=== PATIENT | female | born 1955 | race Caucasian/White ===

== ENCOUNTER → 2016-09-26 | Outpatient (REF) | payer BC | LOC: M LAB REF 16:52 | PROVIDERS: ATTEND Surgery | DX: L72.0 Epidermal cyst (principal) ==

== ENCOUNTER → 2017-01-02 | Outpatient (CLI) | payer BC ==
--- NOTE | 2017-01-02 13:07 | REP ---
Clinical: Trauma. Injury. Technique: AP, lateral, bilateral oblique and sunrise views of the left knee. Findings: Severe, advanced tricompartmental osteoarthritic degenerative changes are appreciated. No obvious acute fracture dislocation. No definite effusion. Impression: Severe tricompartmental degenerative changes. No obvious acute fracture or dislocation. Signed by Jaleel De MD 01/02/2017 12:58 P
== END ==
LOC: M WUC 12:09
PROVIDERS: ATTEND Physician Assistant
DX: M17.12 Unilateral primary osteoarthritis, left knee (principal); M25.562 Pain in left knee

== ENCOUNTER → 2017-12-22 | Outpatient (CLI) | payer BC ==
[2017-12-22 10:30] LABS: BASO # 0.1 10^3/uL (0.0-0.2); BASO % 0.8 % (0.0-1.0); EOS # 0.3 10^3/uL (0.0-0.50); HEMATOCRIT 43.8 % (36.0-47.0); HEMOGLOBIN 14.2 g/dl (12.0-15.5); IMMATURE GRANULOCYTE % 0.4 % (0-3.0); LYMPH # 2.4 10^3/uL (1.5-4.5); LYMPH % 28.8 % (24.0-44.0); MEAN CORPUSCULAR HEMOGLOBIN 28.1 pg (27.0-33.0); MEAN CORPUSCULAR HGB CONC 32.4 g/dl (32.0-36.5); MEAN CORPUSCULAR VOLUME 86.6 fl (80.0-96.0); MONO # 0.7 10^3/uL (0.0-0.8); MONO % 8.3 % (0.0-5.0); NEUTROPHILS # 4.8 10^3/uL (1.8-7.7); NEUTROPHILS % 57.7 % (36.0-66.0); PLATELET COUNT, AUTOMATED 220 10^3/uL (150-450); RED BLOOD COUNT 5.06 10^6/uL (4.00-5.40); RED CELL DISTRIBUTION WIDTH 13.3 % (11.5-14.5); WHITE BLOOD COUNT 8.3 10^3/uL (4.0-10.0)
[2017-12-22 10:56] LABS: TOTAL 25(OH) VITAMIN D 19.3 NG/ML (30.0-100.0)
[2017-12-22 11:01] LABS: ALBUMIN 3.8 GM/DL (3.2-5.2); ALBUMIN/GLOBULIN RATIO 1.09 (1.00-1.93); ALKALINE PHOSPHATASE 72 U/L (45-117); ALT/SGPT 24 U/L (12-78); ANION GAP 7 MEQ/L (8-16); AST/SGOT 17 U/L (7-37); BILIRUBIN,TOTAL 0.7 MG/DL (0.2-1.0); BLOOD UREA NITROGEN 14 MG/DL (7-18); CALCIUM LEVEL 8.9 MG/DL (8.8-10.2); CARBON DIOXIDE LEVEL 27 MEQ/L (21-32); CHLORIDE LEVEL 106 MEQ/L (98-107); CHOLESTEROL LEVEL 173 MG/DL (<200); CHOLESTEROL RISK RATIO 3.604 (<5); CREATININE FOR GFR 0.71 MG/DL (0.55-1.30); FREE T4 0.87 NG/DL (0.76-1.46); GLOMERULAR FILTRATION RATE > 60.0 (>45); GLUCOSE, FASTING 103 MG/DL (70-100); HDL CHOLESTEROL 48 MG/DL (>40); LDL CHOLESTEROL 101.2 MG/DL (<100); NON-HDL-C 125 MG/DL; SODIUM LEVEL 140 MEQ/L (136-145); TOTAL PROTEIN 7.3 GM/DL (6.4-8.2); TRIGLYCERIDES LEVEL 119 MG/DL (<150)
== END ==
LOC: M LAB 09:53
DX: F41.1 Generalized anxiety disorder (principal); I10 Essential (primary) hypertension; E55.9 Vitamin D deficiency, unspecified; Z13.0 Encounter for screening for diseases of the blood and blood-forming organs and certain disorders involving the immune mechanism
CPT/HCPCS: 84443

== ENCOUNTER → 2018-02-16 | Outpatient (CLI) | payer BC | LOC: M WHC 13:52 | DX: Z12.31 Encounter for screening mammogram for malignant neoplasm of breast (principal) | CPT/HCPCS: 77067 ==

== ENCOUNTER → 2018-09-05 | Outpatient (CLI) | payer BC, MEDICARE ==
--- NOTE | 2018-09-05 13:22 | REP ---
Clinical: Severe knee pain. Technique: AP, lateral, bilateral oblique and sunrise views of the left knee. Comparison: 01/02/2017. Findings: Severe tricompartmental osteoarthritic degenerative changes are appreciated and similar to prior examination. A large suprapatellar effusion is identified and increased from prior examination. Overlying anterior soft tissue swelling noted. While no definite acute fracture is appreciated, subtle injury cannot definitively be excluded due to the surrounding degenerative changes. Impression: Severe tricompartmental osteoarthritic degenerative changes along with swelling and suprapatellar effusion. Electronically Signed by Jaleel De MD 09/05/2018 01:14 P
== END ==
LOC: M LRY 12:50
PROVIDERS: ATTEND Physician Assistant
DX: M17.12 Unilateral primary osteoarthritis, left knee (principal); M25.462 Effusion, left knee

== ENCOUNTER → 2018-10-26 | Outpatient (CLI) | payer MEDICARE ==
--- NOTE | 2018-10-26 15:58 | REP ---
Chest two views HISTORY: Preop Comparison: 12/23/2002 The lungs are clear. The cardiac silhouette is enlarged. The pulmonary vasculature is normal in appearance. The bony structure is intact. IMPRESSION: Cardiomegaly. Electronically Signed by Jose D Reyes MD 10/26/2018 03:49 P
[2018-10-26 17:20] LABS: HEMATOCRIT 44.1 % (36.0-47.0); HEMOGLOBIN 14.2 g/dl (12.0-15.5); MEAN CORPUSCULAR HEMOGLOBIN 27.6 pg (27.0-33.0); MEAN CORPUSCULAR HGB CONC 32.2 g/dl (32.0-36.5); MEAN CORPUSCULAR VOLUME 85.6 fl (80.0-96.0); PLATELET COUNT, AUTOMATED 237 10^3/uL (150-450); RED BLOOD COUNT 5.15 10^6/uL (4.00-5.40); WHITE BLOOD COUNT 10.2 10^3/uL (4.0-10.0)
[2018-10-26 17:26] LABS: ALBUMIN 4.1 GM/DL (3.2-5.2); ALT/SGPT 22 U/L (12-78); BILIRUBIN,TOTAL 0.4 MG/DL (0.2-1.0); BLOOD UREA NITROGEN 17 MG/DL (7-18); CALCIUM LEVEL 9.7 MG/DL (8.8-10.2); CARBON DIOXIDE LEVEL 27 MEQ/L (21-32); CHLORIDE LEVEL 104 MEQ/L (98-107); CREATININE FOR GFR 0.72 MG/DL (0.55-1.30); GLOMERULAR FILTRATION RATE > 60.0 (>45); GLUCOSE, FASTING 98 MG/DL (70-100); POTASSIUM SERUM 3.8 MEQ/L (3.5-5.1); SODIUM LEVEL 138 MEQ/L (136-145); TOTAL PROTEIN 7.2 GM/DL (6.4-8.2)
[2018-10-26 17:36] LABS: INR 0.97
[2018-10-27 07:33] LABS: ERYTHROCYTE SEDIMENTATION RATE 8 mm/hr (0-30)
== END ==
LOC: M LRY 14:37
PROVIDERS: ATTEND Orthopaedic Surgery
DX: Z01.818 Encounter for other preprocedural examination (principal); I10 Essential (primary) hypertension; E78.00 Pure hypercholesterolemia, unspecified; H40.9 Unspecified glaucoma; M17.12 Unilateral primary osteoarthritis, left knee

== ENCOUNTER 2018-12-09 09:35 | Inpatient (IN) | payer MEDICARE ==
--- NOTE | 2018-12-04 01:42 | HPE ---
DATE OF PLANNED ADMISSION: 12/09/2018 ATTENDING PHYSICIAN: Dusty Bergman MD CHIEF COMPLAINT: Left knee pain. HISTORY OF PRESENT ILLNESS: Suzi is a pleasant 63-year-old female with progressively worsening left knee pain and stiffness. She has failed to improve with conservative treatment. She has elected for surgery for her continued symptoms. She has pain with weightbearing activities and her activities of daily living. X-rays of her knee are notable for advanced osteoarthritis of the left knee joint. She has consented for a left total knee arthroplasty by Dr. Dusty Bergman. Medical optimization was performed by Dr. Tyson. ALLERGIES: LATEX intolerance. CURRENT MEDICATIONS: - losartan/HCTZ 100/25 mg once a day - sertraline 100 mg once a day - timolol maleate ophthalmic gel - ranitidine 150 mg one every day at bedtime PAST MEDICAL HISTORY: Includes hypertension, anxiety. PAST SURGICAL HISTORY: Includes appendectomy and a procedure for glaucoma. 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 FAMILY HISTORY: Noncontributory. REVIEW OF SYSTEMS: This patient denies chest pain, heart palpitations, cough, wheezing, difficulty breathing, and shortness of breath. She denies abdominal pain, nausea, vomiting, diarrhea, or constipation. She denies recent upper respiratory infection or urinary tract infection symptoms. She does complain of persistent left knee pain and pain with weightbearing activities in the left knee. PHYSICAL EXAMINATION: General: She is a well-nourished, well-developed, in no acute distress, alert female patient who walks with a moderate limp favoring her left lower extremity. She is not using assistive devices. Vital signs: She is 63-3/4 inches tall, weighs 235.2 pounds with a temperature of 98.2, blood pressure 135/62, respirations of 13, pulse of 62. Neck: Supple without adenopathy or jugular venous distention. There were no carotid bruits appreciated upon auscultation. Lungs: Are clear to auscultation without rales or wheeze throughout. Heart: Regular rate and rhythm without murmurs, gallops, or rubs. Abdomen: Bowel sounds were present. Extremities: Examination of the knee revealed intact skin. She had decreased range of motion secondary to pain and stiffness. The limb was neurovascularly intact. LABORATORY DATA: Sedimentation rate was 8. CBC showed a white count of 10.2. Blood type is O negative. Protime 13.0, INR 0.97. Glucose 98, BUN 17, creatinine 0.72. Chest x-ray shows cardiomegaly. EKG showed normal sinus rhythm at 68 beats per minute. IMPRESSION: Symptomatic osteoarthritis of the left knee joint. PLAN: Consented for a left total knee arthroplasty by Dr. Dusty Bergman.
[~2018-12-09] VITALS: Ht 162.6 cm; Wt 104.3 kg
[2018-12-09] VITALS (7 sets, daily range): BP systolic 132–179; BP diastolic 70–99
[~2018-12-09 09:35] MED LIST: LOSA100T5 PO; LR 1,000 ML IV ONE; SERT-138 PO; TIMO0.5S42 OS
[2018-12-09] MEDS ORDERED: PROPOFOL 500 MG/50 ML VIAL As Ordered ONE (11:11)
[2018-12-09] MEDS ORDERED: MIDAZOLAM INJ 2 MG/2 ML VIAL (J2250) As Ordered ONE (11:11)
[2018-12-09] MEDS ORDERED: BUPIVACAINE HCL 0.25% 30 ML VIAL As Ordered ONE (11:14)
--- NOTE | 2018-12-09 11:44 | IPN ---
DATE: 12/09/2018 The patient seen and examined. She wished to go ahead with a left total knee arthroplasty. The site and side was initialed. She understands the nature of the procedure the risks of bleeding, infection, damage to nerves, vessels, persistent pain, wear, loosening, blood clots, medical problems, among others. She saw an radio frequency engineer, who confirms she did not have a nickel allergy, so he was okay with a standard prosthesis and I talked to her about this yesterday and we plan on using the [email or web address] system.
[2018-12-09] MEDS ORDERED: TRANEXAMIC ACID 100 MG/ML 10ML VIAL As Ordered ONE (11:53)
[2018-12-09] MEDS ORDERED: EPINEPHrine INJ 1 MG/ML 1ML AMP As Ordered ONE (11:54)
[2018-12-09] MEDS ORDERED: BUPIVACAINE LIPOSOME/PF 1.3% 20ML VIAL (13.3MG/ML)(EXPAREL)(C9290 PER1MG) As Ordered ONE (11:54)
[2018-12-09] MEDS ORDERED: ceFAZolin 1GM INJ (J0690 PER 500MG) As Ordered ONE (11:54)
[2018-12-09] MEDS ORDERED: LIDOCAINE 1% MDV 20ML VIAL ONE (12:07)
[2018-12-09] MEDS ORDERED: BUPIVACAINE HCL 0.5% 30 ML VIAL As Ordered ONE (12:49)
[2018-12-09] MEDS ORDERED: PROPOFOL 200 MG/20 ML VIAL As Ordered ONE (13:51)
[2018-12-09] MEDS ORDERED: ONDANSETRON 4MG/2ML VIAL (J2405) As Ordered ONE (13:52)
[2018-12-09] MEDS ORDERED: ePHEDrine SULFATE 25 MG/5 ML(5MG/ML) SYRINGE As Ordered ONE (13:52)
[2018-12-09] MEDS ORDERED: ACETAMINOPHEN TAB 650MG DOSE (2X325MG) PO PRN (14:45)
[2018-12-09] MEDS ORDERED: FLEET ENEMA PR PRN (14:45)
[2018-12-09] MEDS ORDERED: METOCLOPRAMIDE INJ 10MG/2ML VIAL (J2765) IV PRN (14:45)
[2018-12-09] MEDS ORDERED: LR 1,000 ML IV SCH ×2 (14:45)
[2018-12-09] MEDS ORDERED: MORPHINE 4 MG/ML 1ML VIAL/SYRINGE (J2270) IV PRN (14:45)
[2018-12-09] MEDS ORDERED: fentaNYL 100 MCG/2 ML INJECTION (J3010) IV PRN (14:45)
[2018-12-09] MEDS ORDERED: ONDANSETRON 4MG/2ML VIAL (J2405) IV PRN (14:45)
--- NOTE | 2018-12-09 15:20 | CR.PDOC ---
General Date of Consultation: Dec 09, 2018 Consultation REASON FOR CONSULTATION/CHIEF COMPLAINT: Who presented to [facility] for an elective orthopedic procedure. HISTORY OF PRESENT ILLNESS: Patient is a 63-year-old female with a past medical history of hypertension, anxiety, and glaucoma who [facility] an [facility] procedure with orthopedic surgery. As an outpatient. She has received medical clearance from Dr. Tyson. She received an EKG, chest x-ray and lab work and did not require any further cardiac clearance. As an outpatient, she had failed medical management and had failed joint injections. Patient was then scheduled for an elective procedure with orthopedic surgery. Patient was seen postoperatively and she denied chest pain, shortness breath, palpitations, cough, nausea, vomiting, abdominal pain, constipation, diarrhea or urination. She denies any fever, chills in the last 2 weeks. Patient reports her appetite is normal. Denies any significant change in her weight. ALLERGIES: Please see below. HOME MEDICATIONS: Please see below. PAST MEDICAL HISTORY: HTN Anxiety Glaucoma PAST SURGICAL HISTORY: Appendectomy Glaucoma procedure 3 FAMILY HISTORY: - Mother with a history of multiple sclerosis - Father with history of hypertension SOCIAL HISTORY: - Denies the use of illicit drugs; patient reports that she drinks 2 glasses of wine daily; patient reports smoking 2 cigarettes daily - Denies recent travel or sick contacts - Lives with - Occupation; retired nurse REVIEW OF SYSTEMS: 10 point review of systems complete, all negative otherwise stated in HPI PHYSICAL EXAMINATION: - Vitals: BP 157/80, HR 49, RR 18, Sat 98%RA, Temp 97.9F - General: Lying in bed, No acute distress, Speaking in full sentences, AAOx3 - HEENT: NC, AT, PERRLA, EOMI - CVS: RRR, +S1S2, - Murmurs / rubs / gallops - Lungs: Fair air entry bilaterally, Clear to auscultation, No wheezing / rales / rhonchi - Abdomen: Soft, Non-distended, Non-tender - Extremities: No lower extremity edema, No calf tenderness, left knee in dressing - Neuro: No focal motor or sensory deficit - Skin: No visible rashes LABORATORY DATA: Please see below. ASSESSMENT/PLAN: Left knee pain - likely 2/2 osteoarthritis - s/p total left knee arthroplasty (POD#0) - Patient presented to [facility] for an elective procedure with orthopedic surgery - Patient has received medical clearance from her outpatient provider - Pain control, anticoagulation and physical therapy at the direction of orthopedic surgery Bradycardia - In the recovery room, patient was found to have a heart rate of 46 - Remains asymptomatic - Patient does take timolol eye drops; will hold this at this time - Will continue to monitor HTN - Blood pressure is moderately controlled - Will hold losartan and hydrochlorothiazide until lab work returns Anxiety - c/w Sertraline Glaucoma - Old Timolol eye drops (re: Bradycardia) DVT prophylaxis - Anticoagulation as per orthopedic team Vital Signs/I&O Vital Signs Date Time Temp Pulse Resp B/P (MAP) Pulse Ox O2 Delivery O2 Flow Rate FiO2 12/09/18 14:45 97.9 49 18 157/80 (105) 98 Allergies Coded Allergies: METALS (Verified Allergy, Intermediate, rash, 11/09/18) States having testing Friday to determine type latex (Verified Allergy, Intermediate, itch, 11/09/18) Home Medications Scheduled Sertraline HCl (Sertraline HCl) 100 Mg Tablet, 100 MG PO DAILY, (Reported) Timolol Maleate (Timoptic) 0.5% 10ML Drops, 1 DROP OS BID, (Reported) Miscellaneous Medications Losartan/Hydrochlorothiazide (Losartan-Hctz 100-25 mg Tab) 1 Each Tablet, 1 TAB PO, (Reported) CUONG COLUNGA MD Dec 09, 2018 15:20
--- NOTE | 2018-12-09 15:40 | REP ---
RIGHT KNEE, TWO VIEWS: Two portable views of the right knee are performed. There is placement of a total knee prosthesis which appears to be in good position. Structures are intact and well aligned. Metallic skin krystina are seen anteriorly. Electronically Signed by Damir Sandhu MD 12/10/2018 09:15 A
--- NOTE | 2018-12-09 16:34 | RO ---
DATE OF PROCEDURE: 12/09/2018 PREOPERATIVE DIAGNOSIS: Left knee osteoarthritis and obesity. POSTOPERATIVE DIAGNOSIS: Left knee osteoarthritis and obesity. OPERATIVE PROCEDURE: Left total knee arthroplasty, Attune rotating platform posterior stabilized Attune knee. SURGEON: Dusty Bergman MD SEMICONDUCTOR LAB TECHNICIAN: JENNIFER Hull ANESTHESIA: Spinal ESTIMATED BLOOD LOSS: 50 mL COMPLICATIONS: None. INDICATIONS: This is a 63-year-old woman with a BMI in the 40s who has had gradually worsening knee pain and severe arthritis. She wished to go ahead with the knee replacement. Preop clearance was obtained. DESCRIPTION OF OPERATIVE PROCEDURE The patient was taken to the operating room and placed in supine position after spinal anesthesia was induced. The left lower extremity was prepped and draped in usual sterile fashion. Time-out was performed. Tourniquet was inflated. I then created a longitudinal incision over the anterior aspect of the knee and sharp dissection was carried down through the copious subcutaneous tissue about an inch and a half thick down before I got to the extensor mechanism. I then did a medial parapatellar arthrotomy per routine, everted the patella but that was difficult to do to free up a pouch along the anterior aspect of the patella and eventually was able to get an adequate eversion. I then used the canal initiating reamer, also removed a lot of osteophytes and put the canal intramedullary guide down the femur. This was set at 5 degrees of valgus and a 9 mm cut. I dialed it back two more millimeters due to her flexion contracture. I sized the femur to be a 5 and made the drill holes in the end of the femur with the external rotation guide dialed in. The cutting block was secured. I made the remaining four cuts. I then prepared the tibia. The retractors were placed. I then set the tibial alignment guide to appropriate amount of valgus and posterior slope and made the proximal tibia cut about 4 mm off the low side. This bone was removed. The PCL was still intact. I then used a materials technician to remove soft tissue and osteophytes from either side of the knee. There were large posterior osteophytes. The sulcus cut was made in the femur. The tibial tray was then placed, a size 4 fit nicely. This was secured, drilled, broached and the trial components were placed. I removed all remaining osteophytes. I had also used spacer blocks to determine that the flexion/extension gaps were appropriate with a 10 thickness. Had excellent stability in flexion and extension. The PCL did not seem overly tight and was still intact. I then placed the trial components, put the knee through range of motion and was very pleased with the position and alignment of the components. The patella was freehand cut removing about 7 mm of bone, sized to be a 35 and the drill holes were placed. Drill holes placed in the end of the femur. The licensed loan officer assistant prepared the bone cement in the modern technique on the back table. I irrigated the bony surfaces and dried them carefully, cemented on the tibial and femoral components, placed the polyethylene in and removed all excess bone cement. I then brought the knee out in extension, cemented on the patella, removed excess bone cement, held this in place until the cement had hardened. I irrigated and placed the Exparel in the deep tissues, the TXA in the deep tissues. Again irrigated and closed the deep layer with interrupted #1 Vicryl suture running, a running Stratafix suture for watertight closure. I irrigated the subcu and closed the subcu with #2-0 Vicryl in layers. Skin was closed with krystina. Tourniquet was deflated. Sterile dressing was applied. She was taken to recovery room in stable condition. There were no known complications. The plan will be routine postop. This was coded as an unusually difficult case due to her morbid obesity or significant fat window around the knee which made positioning and exposure much more difficult, it added time to the case and overall made the trialing difficult and the wound closure more challenging. The licensed loan officer assistant was instrumental in holding retractors and making the distal femoral cut and assisting in mixing the bone cement and closure.
[2018-12-09] MEDS: NORCO, ANEXSIA 5/325MG TABLET (HYDROcodone/ACETAMINOPHEN) PO PRN ×2 (16:37→20:35)
[2018-12-09] MEDS ORDERED: SERTRALINE 100 MG TAB PO ONE (20:15)
[2018-12-09] MEDS: MORPHINE 4 MG/ML 1ML VIAL/SYRINGE (J2270) IV PRN (21:47)
[2018-12-10] MEDS: NORCO, ANEXSIA 5/325MG TABLET (HYDROcodone/ACETAMINOPHEN) PO PRN ×2 (01:36→05:43)
[2018-12-10] MEDS: MORPHINE 4 MG/ML 1ML VIAL/SYRINGE (J2270) IV PRN (01:42)
[2018-12-10 02:00] VITALS: BP 160/77
[2018-12-10 06:00] VITALS: BP 134/73
[2018-12-10] MEDS ORDERED: PERCOCET 5MG/325MG TAB PO PRN ×2 (06:15)
[2018-12-10] MEDS ORDERED: ONDANSETRON 4 MG TAB (S0181) PO PRN (06:15)
[2018-12-10 06:16] LABS: HEMATOCRIT 36.6 % (36.0-47.0); HEMOGLOBIN 11.7 g/dl (12.0-15.5); MEAN CORPUSCULAR HEMOGLOBIN 27.4 pg (27.0-33.0); MEAN CORPUSCULAR VOLUME 85.7 fl (80.0-96.0); PLATELET COUNT, AUTOMATED 228 10^3/uL (150-450); RED BLOOD COUNT 4.27 10^6/uL (4.00-5.40); WHITE BLOOD COUNT 12.4 10^3/uL (4.0-10.0)
[2018-12-10 06:35] LABS: BLOOD UREA NITROGEN 13 MG/DL (7-18); CALCIUM LEVEL 8.2 MG/DL (8.8-10.2); CARBON DIOXIDE LEVEL 27 MEQ/L (21-32); CHLORIDE LEVEL 107 MEQ/L (98-107); CREATININE FOR GFR 0.67 MG/DL (0.55-1.30); GLOMERULAR FILTRATION RATE > 60.0 (>45); GLUCOSE, FASTING 124 MG/DL (70-100); MAGNESIUM LEVEL 2.1 MG/DL (1.8-2.4); POTASSIUM SERUM 3.7 MEQ/L (3.5-5.1); SODIUM LEVEL 142 MEQ/L (136-145)
[2018-12-10] MEDS ORDERED: PERC5TAB12 PO (07:04)
[2018-12-10] MEDS ORDERED: XARE10TA PO (07:04)
[2018-12-10] MEDS ORDERED: RIVAROXABAN 10 MG TAB (XARELTO) PO SCH ×2 (08:00→18:00)
[2018-12-10] MEDS: SERTRALINE 100 MG TAB PO SCH (08:33)
[2018-12-10] MEDS: MIRALAX *UNIT DOSE* 17GM PACKET PO SCH (08:33)
[2018-12-10] MEDS: MOM 30ML SUSPENSION UDC PO SCH (08:33)
[2018-12-10 10:00] VITALS: BP 149/75
--- NOTE | 2018-12-10 10:56 | IPNPDOC ---
Text Note Date of Service The patient was seen on 12/10/18. NOTE Subjective: Patient is a 63-year-old female with a past medical history of hypertension, anxiety, and glaucoma who [facility] or an elective procedure with orthopedic surgery. As an outpatient. She has received medical clearance from Dr. Tyson. She received an EKG, chest x-ray and lab work and did not require any further cardiac clearance. As an outpatient, she had failed medical management and had failed joint injections. Patient was then scheduled for an elective procedure with orthopedic surgery. Patient was seen and examined at the bedside. Patient reports that she has been ambulatory. She denies chest pain, shortness breath or palpitations. She has had inability to pass gas but has not yet had a bowel movement. She denies any urinary discomfort. Objective: Vitals (See below) General: Lying in bed, no acute distress, comfortable, AAOx3 HEENT: NC, AT CVS: RRR, +S1S2 Lungs: Fair air entry b/l, auscultation is without wheezing, rhonchi or rales Abdomen: Soft, ND, NT Extremities: - Edema, - Calf tenderness, left knee in dressing Assessment and plan: Left knee pain - likely 2/2 osteoarthritis - s/p total left knee arthroplasty (POD#1) - Patient presented to [facility] for an elective procedure with orthopedic surgery - Patient has received medical clearance from her outpatient provider - Pain control, anticoagulation and physical therapy at the direction of orthopedic surgery - Patient will be working with physical therapy today Bradycardia - In the recovery room, patient was found to have a heart rate of 46 - Heart rate currently appears to have improved - Remains asymptomatic - Patient does take timolol eye drops; will continue to hold HTN - Blood pressure is moderately controlled - Will hold hydrochlorothiazide - Will resume losartan Anxiety - c/w Sertraline Glaucoma - Old Timolol eye drops (re: Bradycardia) DVT prophylaxis - Anticoagulation as per orthopedic team Disposition: - Anticipating discharge home today VSErnst, I+O VS, Ernst, I+O Laboratory Tests 12/10/18 05:32 Red Blood Count 4.27, Mean Corpuscular Volume 85.7, Mean Corpuscular Hemoglobin 27.4, Mean Corpuscular Hemoglobin Concent 32.0, Red Cell Distribution Width 13.1, Calcium Level 8.2 L Vital Signs Date Time Temp Pulse Resp B/P (MAP) Pulse Ox O2 Delivery O2 Flow Rate FiO2 12/10/18 10:00 98.1 53 16 149/75 (99 98 I&O- Last 24 Hours up to 6 AM 12/10/18 06:00 Intake Total 3300 ml Output Total 1000 ml Balance 2300 ml CUONG COLUNGA MD Dec 10, 2018 10:56
[2018-12-10] MEDS ORDERED: LOSARTAN 50 MG TAB PO ONE (11:00)
[2018-12-10] MEDS ORDERED: traMADol 50 MG TAB PO PRN (13:30)
[2018-12-10] MEDS: traMADol 50 MG TAB PO PRN ×2 (13:40→19:58)
[2018-12-10] MEDS: ACETAMINOPHEN 500 MG TAB PO SCH ×2 (13:40→19:57)
[2018-12-10 14:00] VITALS: BP 146/70
[2018-12-10 18:00] VITALS: BP 136/71
[2018-12-10 22:00] VITALS: BP 145/71
[2018-12-11] MEDS: traMADol 50 MG TAB PO PRN ×2 (02:15→09:50)
[2018-12-11] MEDS: ACETAMINOPHEN 500 MG TAB PO SCH (05:50)
[2018-12-11 06:00] VITALS: BP 158/74
[2018-12-11 06:47] LABS: HEMATOCRIT 36.2 % (36.0-47.0); HEMOGLOBIN 11.6 g/dl (12.0-15.5); MEAN CORPUSCULAR HEMOGLOBIN 27.6 pg (27.0-33.0); MEAN CORPUSCULAR VOLUME 86.2 fl (80.0-96.0); PLATELET COUNT, AUTOMATED 202 10^3/uL (150-450); WHITE BLOOD COUNT 12.3 10^3/uL (4.0-10.0)
[2018-12-11 07:15] LABS: BLOOD UREA NITROGEN 9 MG/DL (7-18); CARBON DIOXIDE LEVEL 29 MEQ/L (21-32); CHLORIDE LEVEL 104 MEQ/L (98-107); CREATININE FOR GFR 0.53 MG/DL (0.55-1.30); GLOMERULAR FILTRATION RATE > 60.0 (>45); GLUCOSE, FASTING 119 MG/DL (70-100); MAGNESIUM LEVEL 2.4 MG/DL (1.8-2.4); POTASSIUM SERUM 3.6 MEQ/L (3.5-5.1); SODIUM LEVEL 138 MEQ/L (136-145)
[2018-12-11 08:36] VITALS: BP 158/74
[2018-12-11] MEDS: MIRALAX *UNIT DOSE* 17GM PACKET PO SCH (08:36)
[2018-12-11] MEDS: SERTRALINE 100 MG TAB PO SCH (08:36)
[2018-12-11] MEDS: MOM 30ML SUSPENSION UDC PO SCH (08:36)
[2018-12-11] MEDS ORDERED: LOSARTAN 50 MG TAB PO SCH (09:00)
[2018-12-11] MEDS ORDERED: TRAM50TA2 PO (10:25)
--- NOTE | 2018-12-11 11:34 | IPNPDOC ---
Text Note Date of Service The patient was seen on 12/11/18. NOTE Subjective: Patient is a 63-year-old female with a past medical history of hypertension, anxiety, and glaucoma who [facility] or an elective procedure with orthopedic surgery. As an outpatient. She has received medical clearance from Dr. Tyson. She received an EKG, chest x-ray and lab work and did not require any further cardiac clearance. As an outpatient, she had failed medical management and had failed joint injections. Patient was then scheduled for an elective procedure with orthopedic surgery. Patient was seen and examined at the bedside. Patient reports that she has been functional and has been able to ambulate without much difficulty. She denies chest pain, shortness breath, palpitations. She reports that she has had the ability to pass gas. Has not yet had a bowel movement. Denies any urinary di scomfort Objective: Vitals (See below) General: Lying in bed, no acute distress, comfortable, AAOx3 HEENT: NC, AT CVS: RRR, +S1S2 Lungs: Air entry is fair bilaterally, without any wheezing, rhonchi or rales appreciated Abdomen: Soft, remains nondistended and nontender Extremities: No evidence of lower extremity edema, - Calf tenderness, left knee in bandaging Assessment and plan: Left knee pain - likely 2/2 osteoarthritis - s/p total left knee arthroplasty (POD#2) - Patient presented to [facility] for an elective procedure with orthopedic surgery - Patient has received medical clearance from her outpatient provider - Pain control, anticoagulation and physical therapy at the direction of orthopedic surgery - Patient will continue with physical therapy; she is anticipated to be discharged s/p Bradycardia - In the recovery room, patient was found to have a heart rate of 46 - Heart rate currently appears to have improved - Remains asymptomatic - Patient does take timolol eye drops; will continue to hold HTN - Blood pressure again has trended up - Will reintroduce hydrochlorothiazide upon discharge - c/w losartan Anxiety - c/w Sertraline Glaucoma - Old Timolol eye drops (re: Bradycardia) DVT prophylaxis - Anticoagulation as per orthopedic team Disposition: - Patient remained additional day for continued physical therapy - She is anticipated to leave today VS,Fishbone, I+O VS, Fishbone, I+O Laboratory Tests 12/11/18 06:35 Red Blood Count 4.20, Mean Corpuscular Volume 86.2, Mean Corpuscular Hemoglobin 27.6, Mean Corpuscular Hemoglobin Concent 32.0, Red Cell Distribution Width 13.0, Calcium Level 8.0 L Vital Signs Date Time Temp Pulse Resp B/P (MAP) Pulse Ox O2 Delivery O2 Flow Rate FiO2 12/11/18 10:20 20 12/11/18 08:36 158/74 12/11/18 06:00 99.5 68 91 I&O- Last 24 Hours up to 6 AM 12/11/18 06:00 Intake Total 1040 ml Output Total 1050 ml Balance -10 ml CUONG COLUNGA MD Dec 11, 2018 11:34
== END 2018-12-11 11:25 | disposition home or self-care (01) | DRG 470 ==
LOC: M OR 09:35 → M MS5PR 15:20
PROVIDERS: ADMIT Orthopaedic Surgery; ATTEND Orthopaedic Surgery
PROC: 0SRD0J9 Replacement of Left Knee Joint with Synthetic Substitute, Cemented, Open Approach (ICD-10-PCS; principal; 2018-12-09 12:00)
DX: M17.12 Unilateral primary osteoarthritis, left knee (principal); Z68.41 Body mass index [BMI] 40.0-44.9, adult; E66.01 Morbid (severe) obesity due to excess calories; I10 Essential (primary) hypertension; H40.9 Unspecified glaucoma; R00.1 Bradycardia, unspecified; E55.9 Vitamin D deficiency, unspecified; F41.1 Generalized anxiety disorder; Z91.040 Latex allergy status; Z79.899 Other long term (current) drug therapy; Z91.048 Other nonmedicinal substance allergy status; T44.7X5A Adverse effect of beta-adrenoreceptor antagonists, initial encounter

== ENCOUNTER → 2019-02-05 | Outpatient (REF) | payer MEDICARE ==
[~2019-02-05] MED LIST changes: -LR 1,000 ML IV ONE; +PERC5TAB12 PO; +TRAM50TA2 PO; +XARE10TA PO
== END ==
LOC: M LABWUC 15:58
PROVIDERS: ATTEND Physician Assistant
DX: M17.11 Unilateral primary osteoarthritis, right knee (principal)

== ENCOUNTER → 2019-02-23 | Outpatient (REF) | payer MEDICARE ==
[2019-02-23 17:24] LABS: BLOOD UREA NITROGEN 20 MG/DL (7-18); CALCIUM LEVEL 9.4 MG/DL (8.8-10.2); CARBON DIOXIDE LEVEL 28 MEQ/L (21-32); CHLORIDE LEVEL 106 MEQ/L (98-107); CREATININE FOR GFR 0.86 MG/DL (0.55-1.30); GLOMERULAR FILTRATION RATE > 60.0 (>45); GLUCOSE, FASTING 88 MG/DL (70-100); POTASSIUM SERUM 4.2 MEQ/L (3.5-5.1); SODIUM LEVEL 139 MEQ/L (136-145)
== END ==
LOC: M LAB REF 16:30
PROVIDERS: ATTEND Physician Assistant
DX: Z01.818 Encounter for other preprocedural examination (principal)

== ENCOUNTER → 2019-03-22 | Outpatient (CLI) | payer MEDICARE ==
--- NOTE | 2019-03-22 15:07 | REPMRS ---
Patient History The patient states she has not had a clinical breast exam in over a year. Patient is postmenopausal. Family history of breast cancer at age 50 or over in maternal aunt, breast cancer under age 50 in maternal cousin. Took unspecified hormones for 3 years. 3D TOMOSYNTHESIS WAS PERFORMED. [facility] lifetime risk for breast cancer is 9.4%. Digital Woman Screen Mammo: March 22, 2019 - Exam #: [id number] Bilateral CC and MLO view(s) were taken. Technologist: Rebecca Tolbert, Technologist Prior study comparison: February 16, 2018, bilateral digital woman screen mammo performed at [facility]. February 15, 2016, digital woman screen mammo performed at [facility]. FINDINGS: There are scattered fibroglandular densities. There has been no change in the appearance of the mammogram from the prior studies. There is a mild amount of residual fibroglandular tissue which is fairly symmetric. There is no interval development of dominant mass, architectural distortion, or clustered microcalcification suggestive of malignancy. Assessment: BI-RADS/ACR category 1 mammogram. Negative Mammogram. Recommendation Routine screening mammogram in 1 year (for women over age 40). This mammogram was interpreted with the aid of an FDA-approved computer-aided dectection system. Electronically Signed By: Damir Sandhu MD 03/22/19 [id number]
== END ==
LOC: M WHC 13:04
PROVIDERS: ATTEND Physician Assistant
DX: Z12.31 Encounter for screening mammogram for malignant neoplasm of breast (principal); Z78.0 Asymptomatic menopausal state; Z92.23 Personal history of estrogen therapy

== ENCOUNTER → 2019-08-09 | Outpatient (CLI) | payer MEDICARE ==
[2019-08-09 13:30] LABS: BASO # 0.1 10^3/uL (0.0-0.2); BASO % 1.2 % (0.0-1.0); EOS # 0.3 10^3/uL (0.0-0.5); EOS % 3.3 % (0.0-3.0); HEMOGLOBIN 15.4 g/dl (12.0-15.5); LYMPH # 1.3 10^3/uL (1.5-5.0); LYMPH % 14.8 % (24.0-44.0); MEAN CORPUSCULAR HEMOGLOBIN 28.3 pg (27.0-33.0); MEAN CORPUSCULAR HGB CONC 30.8 g/dl (32.0-36.5); MEAN CORPUSCULAR VOLUME 91.7 fl (80.0-96.0); MONO # 0.7 10^3/uL (0.0-0.8); MONO % 8.7 % (0.0-5.0); NEUTROPHILS # 6.1 10^3/uL (1.5-8.5); NEUTROPHILS % 71.6 % (36.0-66.0); PLATELET COUNT, AUTOMATED 201 10^3/uL (150-450); RED BLOOD COUNT 5.45 10^6/uL (4.00-5.40); WHITE BLOOD COUNT 8.5 10^3/uL (4.0-10.0)
[2019-08-09 13:43] LABS: ALBUMIN 3.9 GM/DL (3.2-5.2); ALT/SGPT 21 U/L (12-78); BILIRUBIN,TOTAL 0.6 MG/DL (0.2-1.0); BLOOD UREA NITROGEN 15 MG/DL (7-18); CARBON DIOXIDE LEVEL 32 MEQ/L (21-32); CHLORIDE LEVEL 108 MEQ/L (98-107); CHOLESTEROL LEVEL 175 MG/DL (<200); CHOLESTEROL RISK RATIO 4.069 (<5); CREATININE FOR GFR 0.73 MG/DL (0.55-1.30); FREE T4 0.95 NG/DL (0.76-1.46); GLOMERULAR FILTRATION RATE > 60.0 (>45); GLUCOSE, FASTING 109 MG/DL (70-100); HDL CHOLESTEROL 43 MG/DL (>40); LDL CHOLESTEROL 102 MG/DL (<100); NON-HDL-C 132 MG/DL; POTASSIUM SERUM 4.5 MEQ/L (3.5-5.1); SODIUM LEVEL 142 MEQ/L (136-145); TOTAL PROTEIN 7.1 GM/DL (6.4-8.2); TRIGLYCERIDES LEVEL 152 MG/DL (<150)
== END ==
LOC: M LRY 08:51
PROVIDERS: ATTEND Physician Assistant
DX: I10 Essential (primary) hypertension (principal); F33.1 Major depressive disorder, recurrent, moderate

== ENCOUNTER → 2020-02-12 | Outpatient (REF) | payer MEDICARE ==
[2020-03-11 09:53] LABS: BASO # 0.1 10^3/uL (0.0-0.2); BASO % 0.9 % (0.0-1.0); EOS # 0.4 10^3/uL (0.0-0.5); EOS % 4.1 % (0.0-3.0); HEMATOCRIT 49.8 % (36.0-47.0); LYMPH # 1.9 10^3/uL (1.5-5.0); LYMPH % 20.7 % (24.0-44.0); MEAN CORPUSCULAR HGB CONC 32.1 g/dl (32.0-36.5); MEAN CORPUSCULAR VOLUME 90.2 fl (80.0-96.0); MONO # 0.7 10^3/uL (0.0-0.8); NEUTROPHILS % 65.9 % (36.0-66.0); PLATELET COUNT, AUTOMATED 227 10^3/uL (150-450); RED BLOOD COUNT 5.52 10^6/uL (4.00-5.40); WHITE BLOOD COUNT 9.2 10^3/uL (4.0-10.0)
[2020-03-16 21:48] LABS: ALBUMIN 3.6 GM/DL (3.2-5.2); ALT/SGPT 23 U/L (12-78); BILIRUBIN,TOTAL 0.5 MG/DL (0.2-1.0); BLOOD UREA NITROGEN 10 MG/DL (7-18); CALCIUM LEVEL 9.1 MG/DL (8.8-10.2); CARBON DIOXIDE LEVEL 28 MEQ/L (21-32); CHLORIDE LEVEL 108 MEQ/L (98-107); CHOLESTEROL LEVEL 164 MG/DL (<200); CHOLESTEROL RISK RATIO 4.205 (<5); CREATININE FOR GFR 0.85 MG/DL (0.55-1.30); GLOMERULAR FILTRATION RATE > 60.0 (>45); GLUCOSE, FASTING 110 MG/DL (70-100); HDL CHOLESTEROL 39 MG/DL (>40); LDL CHOLESTEROL 97 MG/DL (<100); NON-HDL-C 125 MG/DL; POTASSIUM SERUM 3.6 MEQ/L (3.5-5.1); SODIUM LEVEL 143 MEQ/L (136-145); TOTAL 25(OH) VITAMIN D 31.4 NG/ML (30.0-100.0); TRIGLYCERIDES LEVEL 141 MG/DL (<150)
== END ==
LOC: M WUC 10:10
PROVIDERS: ATTEND Family Medicine
DX: I10 Essential (primary) hypertension (principal); E55.9 Vitamin D deficiency, unspecified

== ENCOUNTER → 2020-06-06 | Outpatient (CLI) | payer MEDICARE ==
[2020-06-06 16:57] LABS: BLOOD UREA NITROGEN 18 MG/DL (7-18); CALCIUM LEVEL 9.3 MG/DL (8.8-10.2); CARBON DIOXIDE LEVEL 29 MEQ/L (21-32); CHLORIDE LEVEL 104 MEQ/L (98-107); CREATININE FOR GFR 0.86 MG/DL (0.55-1.30); FREE T4 0.98 NG/DL (0.76-1.46); GLOMERULAR FILTRATION RATE > 60.0 (>45); GLUCOSE, FASTING 95 MG/DL (70-100); POTASSIUM SERUM 3.7 MEQ/L (3.5-5.1); SODIUM LEVEL 138 MEQ/L (136-145); TOTAL 25(OH) VITAMIN D 31.3 NG/ML (30.0-100.0)
== END ==
LOC: M LAB 13:22
PROVIDERS: ATTEND Family Medicine
DX: E55.9 Vitamin D deficiency, unspecified (principal); I10 Essential (primary) hypertension

== ENCOUNTER → 2020-06-06 | Outpatient (CLI) | payer MEDICARE ==
--- NOTE | 2020-06-06 16:52 | REPMRS ---
Patient History The patient states she had a clinical breast exam in 06/25 Family history of breast cancer at age 50 or over in maternal aunt, breast cancer under age 50 in maternal cousin. Took unspecified hormones for 3 years. Digital Woman Screen Mammo: June 06, 2020 - Exam #: [id number] Bilateral CC and MLO view(s) were taken. Technologist: Lindsey Ansari, Technologist Prior study comparison: March 22, 2019, bilateral digital woman screen mammo performed at [facility]. February 16, 2018, bilateral digital woman screen mammo performed at [facility]. February 15, 2016, digital woman screen mammo performed at [facility]. FINDINGS: The breast tissue is almost entirely fat. The Volpara volumetric breast density category is: A. There has been no change in the appearance of the mammogram from the prior studies. There is no interval development of dominant mass, architectural distortion, or grouped microcalcification typical of malignancy. 3-D tomosynthesis shows no additional findings. Assessment: BI-RADS/ACR category 1 mammogram. Negative Mammogram. Recommendation Routine screening mammogram of both breasts in 1 year (for women over age 40). This patient's [facility] Lifetime Breast Cancer RIsk is estimated at 8.9 %. This mammogram was interpreted with the aid of an FDA-approved computer-aided dectection system. Electronically Signed By: Ulices Pierson MD 06/06/20 [id number]
--- NOTE | 2020-06-06 17:33 | DEXAMM ---
INDICATION: Z13.820 SCR FOR OSTEOPOROSIS. COMPARISON: Comparison DEXA study January 03, 2015.. TECHNIQUE: Bone density was measured using dual-energy x-ray absorptionmetry (DEXA). FINDINGS: AP SPINE L1-L4 BMD 1.327 g/cm2 Young Adult T-Score 1.1 Age Matched Z-Score 2.7. LT FEMUR, TOTAL BMD 0.971 g/cm2 Young Adult T-Score -0.3 Age Matched Z-Score 1.0. LT NECK BMD 0.901 g/cm2 Young Adult T-Score -1.0 Age Matched Z-Score 0.6. RT FEMUR, TOTAL BMD 0.936 g/cm2 Young Adult T-Score -0.6 Age Matched Z-Score 0.7. RT NECK BMD 0.849 g/cm2 Young Adult T-Score -1.4 Age Matched Z-Score 0.2. IMPRESSION: There is normal bone densitometry of the spine. There is low bone density of the left hip. There is low bone density of the right hip. The density of the spine has increased 7.9% since the initial exam on January 03, 2015. The density of the left hip has decreased 4.8% since initial exam on January 03, 2015. The density of the right hip has decreased 0.1% since the initial exam on January 03, 2015. FOLLOW-UP: Recommendation for the next bone density exam: 2 years. <Electronically signed by Ulices Pierson > 06/06/20 [id number]
== END ==
LOC: M WHC 14:02
PROVIDERS: ATTEND Nurse Practitioner Women's Health
DX: Z01.419 Encounter for gynecological examination (general) (routine) without abnormal findings (principal); Z12.31 Encounter for screening mammogram for malignant neoplasm of breast; Z13.820 Encounter for screening for osteoporosis; Z92.29 Personal history of other drug therapy; Z78.0 Asymptomatic menopausal state; E55.9 Vitamin D deficiency, unspecified; I10 Essential (primary) hypertension
CPT/HCPCS: 36415; 77063; 77067; 77080; 80048; 82306; 84439; 84443; G0101

== ENCOUNTER → 2022-03-01 | Outpatient (CLI) | payer MEDICARE | LOC: M WHC 14:54 | PROVIDERS: ATTEND Family Medicine | DX: Z12.31 Encounter for screening mammogram for malignant neoplasm of breast (principal) ==

== ENCOUNTER → 2022-03-04 | Outpatient (CLI) | payer MEDICARE ==
[2022-03-04 13:35] LABS: BASO # 0.1 10^3/uL (0.0-0.2); BASO % 0.7 % (0.0-1.0); EOS # 0.4 10^3/uL (0.0-0.5); EOS % 2.8 % (0.0-3.0); HEMATOCRIT 47.9 % (36.0-47.0); HEMOGLOBIN 15.1 g/dl (12.0-15.5); LYMPH # 1.8 10^3/uL (1.5-5.0); LYMPH % 13.8 % (24.0-44.0); MEAN CORPUSCULAR HEMOGLOBIN 28.2 pg (27.0-33.0); MEAN CORPUSCULAR HGB CONC 31.5 g/dl (32.0-36.5); MEAN CORPUSCULAR VOLUME 89.5 fl (80.0-96.0); MONO # 0.8 10^3/uL (0.0-0.8); MONO % 6.3 % (2.0-8.0); NEUTROPHILS # 9.7 10^3/uL (1.5-8.5); NEUTROPHILS % 75.9 % (36.0-66.0); PLATELET COUNT, AUTOMATED 221 10^3/uL (150-450); RED BLOOD COUNT 5.35 10^6/uL (4.00-5.40); WHITE BLOOD COUNT 12.8 10^3/uL (4.0-10.0)
[2022-03-04 15:19] LABS: ALBUMIN 3.7 GM/DL (3.2-5.2); ALT/SGPT 17 U/L (12-78); BILIRUBIN,TOTAL 0.8 MG/DL (0.2-1.0); BLOOD UREA NITROGEN 15 MG/DL (7-18); CALCIUM LEVEL 9.5 MG/DL (8.8-10.2); CARBON DIOXIDE LEVEL 27 MEQ/L (21-32); CHLORIDE LEVEL 107 MEQ/L (98-107); CHOLESTEROL LEVEL 181 MG/DL (<200); CHOLESTEROL RISK RATIO 3.851 (<5); CREATININE FOR GFR 0.67 MG/DL (0.55-1.30); FREE T4 0.81 NG/DL (0.76-1.46); GLOMERULAR FILTRATION RATE > 60.0 (>45); GLUCOSE, FASTING 94 MG/DL (70-100); HDL CHOLESTEROL 47 MG/DL (>40); LDL CHOLESTEROL 107 MG/DL (<100); NON-HDL-C 134 MG/DL; POTASSIUM SERUM 3.9 MEQ/L (3.5-5.1); SODIUM LEVEL 141 MEQ/L (136-145); TOTAL PROTEIN 6.8 GM/DL (6.4-8.2); TRIGLYCERIDES LEVEL 134 MG/DL (<150)
== END ==
LOC: M PLALAB 09:19
PROVIDERS: ATTEND Family Medicine
DX: I10 Essential (primary) hypertension (principal); E55.9 Vitamin D deficiency, unspecified; Z79.899 Other long term (current) drug therapy

== ENCOUNTER → 2022-11-07 | Outpatient (CLI) | payer MEDICARE ==
[2022-11-07 15:47] LABS: BASO # 0.1 10^3/uL (0.0-0.2); BASO % 0.9 % (0.0-1.0); EOS # 0.2 10^3/uL (0.0-0.5); EOS % 2.9 % (0.0-3.0); HEMATOCRIT 46.6 % (36.0-47.0); HEMOGLOBIN 15.2 g/dl (12.0-15.5); LYMPH # 2.4 10^3/uL (1.5-5.0); LYMPH % 29.3 % (24.0-44.0); MEAN CORPUSCULAR HEMOGLOBIN 28.7 pg (27.0-33.0); MEAN CORPUSCULAR HGB CONC 32.6 g/dl (32.0-36.5); MEAN CORPUSCULAR VOLUME 88.1 fl (80.0-96.0); MONO # 0.9 10^3/uL (0.0-0.8); MONO % 10.4 % (2.0-8.0); NEUTROPHILS # 4.6 10^3/uL (1.5-8.5); NEUTROPHILS % 56.3 % (36.0-66.0); PLATELET COUNT, AUTOMATED 207 10^3/uL (150-450); RED BLOOD COUNT 5.29 10^6/uL (4.00-5.40); WHITE BLOOD COUNT 8.2 10^3/uL (4.0-10.0)
[2022-11-07 16:12] LABS: ALKALINE PHOSPHATASE 74 U/L (46-116); ALT/SGPT 17 U/L (7.0-40); AST/SGOT 16 U/L (<34); BILIRUBIN,TOTAL 0.6 MG/DL (0.3-1.2); BLOOD UREA NITROGEN 17 MG/DL (9-23); CARBON DIOXIDE LEVEL 30 MMOL/L (20-31); CHLORIDE LEVEL 105 MMOL/L (98-107); CREATININE FOR GFR 0.76 MG/DL (0.55-1.30); GLOMERULAR FILTRATION RATE > 60.0 (>45); GLUCOSE, FASTING 92 MG/DL (74-106); POTASSIUM SERUM 3.9 MMOL/L (3.5-5.1); SODIUM LEVEL 138 MMOL/L (136-145); THYROID STIMULATING HORMONE 2.222 uIU/ML (0.55-4.78); TOTAL PROTEIN 7.1 G/DL (5.7-8.2)
== END ==
LOC: M LAB 15:00
PROVIDERS: ATTEND Internal Medicine Cardiovascular Disease
DX: I11.9 Hypertensive heart disease without heart failure (principal); E07.9 Disorder of thyroid, unspecified

== ENCOUNTER → 2022-11-29 | Outpatient (CLI) | payer MEDICARE | LOC: M SLEEP HO 11-25 10:52 | PROVIDERS: ATTEND Internal Medicine Cardiovascular Disease | DX: I27.23 Pulmonary hypertension due to lung diseases and hypoxia (principal); R00.1 Bradycardia, unspecified; R60.0 Localized edema ==

== ENCOUNTER → 2023-02-06 | Outpatient (CLI) | payer MEDICARE ==
[2023-02-06 14:27] LABS: BASO # 0.1 10^3/uL (0.0-0.2); BASO % 0.8 % (0.0-1.0); EOS # 0.3 10^3/uL (0.0-0.5); EOS % 3.7 % (0.0-3.0); HEMATOCRIT 49.8 % (36.0-47.0); HEMOGLOBIN 15.9 g/dl (12.0-15.5); LYMPH # 1.6 10^3/uL (1.5-5.0); LYMPH % 19.8 % (24.0-44.0); MEAN CORPUSCULAR HEMOGLOBIN 28.6 pg (27.0-33.0); MEAN CORPUSCULAR HGB CONC 31.9 g/dl (32.0-36.5); MEAN CORPUSCULAR VOLUME 89.6 fl (80.0-96.0); MONO # 0.7 10^3/uL (0.0-0.8); MONO % 8.6 % (2.0-8.0); NEUTROPHILS # 5.3 10^3/uL (1.5-8.5); NEUTROPHILS % 66.8 % (36.0-66.0); PLATELET COUNT, AUTOMATED 199 10^3/uL (150-450); RED BLOOD COUNT 5.56 10^6/uL (4.00-5.40); WHITE BLOOD COUNT 7.9 10^3/uL (4.0-10.0)
[2023-02-06 15:05] LABS: FREE T4 0.85 NG/DL (0.89-1.76)
[2023-02-06 15:06] LABS: THYROID STIMULATING HORMONE 1.959 uIU/ML (0.55-4.78); TOTAL 25(OH) VITAMIN D 42.9 NG/ML (20.0-100.0)
[2023-02-06 15:08] LABS: ALBUMIN 3.9 G/DL (3.2-5.2); ALKALINE PHOSPHATASE 77 U/L (46-116); ALT/SGPT 13 U/L (7.0-40); AST/SGOT 9 U/L (<34); BILIRUBIN,TOTAL 0.8 MG/DL (0.3-1.2); BLOOD UREA NITROGEN 15 MG/DL (9-23); CALCIUM LEVEL 9.6 MG/DL (8.3-10.6); CARBON DIOXIDE LEVEL 27 MMOL/L (20-31); CHLORIDE LEVEL 106 MMOL/L (98-107); CHOLESTEROL LEVEL 181 MG/DL (<200); CHOLESTEROL RISK RATIO 3.92 (<5); CREATININE FOR GFR 0.74 MG/DL (0.55-1.30); GLOMERULAR FILTRATION RATE > 60.0 (>45); GLUCOSE, FASTING 107 MG/DL (74-106); HDL CHOLESTEROL 46.1 MG/DL (>40); LDL CHOLESTEROL 102.3 MG/DL (<100); NON-HDL-C 134.9 MG/DL; POTASSIUM SERUM 3.7 MMOL/L (3.5-5.1); SODIUM LEVEL 143 MMOL/L (136-145); TOTAL PROTEIN 6.9 G/DL (5.7-8.2); TRIGLYCERIDES LEVEL 163 MG/DL (<150)
== END ==
LOC: M PLALAB 09:19
PROVIDERS: ATTEND Family Medicine
DX: I10 Essential (primary) hypertension (principal); E55.9 Vitamin D deficiency, unspecified; E78.00 Pure hypercholesterolemia, unspecified

== ENCOUNTER → 2023-04-17 | Outpatient (CLI) | payer MEDICARE | LOC: M WHC 15:00 | PROVIDERS: ATTEND Advanced Practice Midwife | DX: Z12.31 Encounter for screening mammogram for malignant neoplasm of breast (principal) ==

== ENCOUNTER → 2023-10-07 | Outpatient (CLI) | payer MEDICARE ==
[2023-10-07 11:08] LABS: BASO # 0.1 10^3/uL (0.0-0.2); EOS # 0.3 10^3/uL (0.0-0.5); EOS % 3.8 % (0.0-3.0); HEMATOCRIT 45.1 % (36.0-47.0); HEMOGLOBIN 14.5 g/dl (12.0-15.5); LYMPH # 1.7 10^3/uL (1.5-5.0); LYMPH % 22.7 % (24.0-44.0); MEAN CORPUSCULAR HEMOGLOBIN 28.3 pg (27.0-33.0); MEAN CORPUSCULAR HGB CONC 32.2 g/dl (32.0-36.5); MEAN CORPUSCULAR VOLUME 88.1 fl (80.0-96.0); MONO # 0.7 10^3/uL (0.0-0.8); MONO % 8.6 % (2.0-8.0); NEUTROPHILS # 4.8 10^3/uL (1.5-8.5); NEUTROPHILS % 63.4 % (36.0-66.0); PLATELET COUNT, AUTOMATED 209 10^3/uL (150-450); RED BLOOD COUNT 5.12 10^6/uL (4.00-5.40); WHITE BLOOD COUNT 7.7 10^3/uL (4.0-10.0)
[2023-10-07 11:27] LABS: ALBUMIN 3.6 G/DL (3.2-5.2); ALKALINE PHOSPHATASE 69 U/L (46-116); ALT/SGPT 16 U/L (7.0-40); AST/SGOT 16 U/L (<34); BILIRUBIN,TOTAL 0.7 MG/DL (0.3-1.2); BLOOD UREA NITROGEN 17 MG/DL (9-23); CALCIUM LEVEL 9.6 MG/DL (8.3-10.6); CARBON DIOXIDE LEVEL 29 MMOL/L (20-31); CHLORIDE LEVEL 106 MMOL/L (98-107); CHOLESTEROL LEVEL 193 MG/DL (<200); CHOLESTEROL RISK RATIO 3.67 (<5); GLOMERULAR FILTRATION RATE > 60.0 (>39); GLUCOSE, FASTING 105 MG/DL (74-106); HDL CHOLESTEROL 52.5 MG/DL (>40); LDL CHOLESTEROL 112.3 MG/DL (<100); NON-HDL-C 140.5 MG/DL; POTASSIUM SERUM 3.9 MMOL/L (3.5-5.1); SODIUM LEVEL 139 MMOL/L (136-145); TOTAL PROTEIN 6.7 G/DL (5.7-8.2); TRIGLYCERIDES LEVEL 141 MG/DL (<150)
[2023-10-07 11:30] LABS: THYROID STIMULATING HORMONE 2.682 uIU/ML (0.55-4.78)
[2023-10-07 11:31] LABS: TOTAL 25(OH) VITAMIN D 35.6 NG/ML (20.0-100.0)
[2023-10-07 11:32] LABS: FREE T4 0.88 NG/DL (0.89-1.76)
== END ==
LOC: M LAB 09:27
PROVIDERS: ATTEND Nurse Practitioner Adult Health
DX: I10 Essential (primary) hypertension (principal)

== ENCOUNTER → 2024-02-13 | Outpatient (CLI) | payer MEDICARE | LOC: M RAD 15:23 | PROVIDERS: ATTEND Family Medicine | DX: I51.7 Cardiomegaly (principal); R07.9 Chest pain, unspecified; R06.2 Wheezing ==

== ENCOUNTER → 2025-01-20 | Outpatient (CLI) | payer MEDICARE | LOC: M RAD 12:46 | PROVIDERS: ATTEND Nurse Practitioner Adult Health | DX: J01.90 Acute sinusitis, unspecified (principal) ==